=== PATIENT | male | born 1990 | race Caucasian/White ===

== ENCOUNTER 2025-06-12 09:23 | Emergency (ER) | payer BC, SELFPAY ==
[2025-06-12 09:23] VITALS: BP 130/82; PULSE 104; RESP 18; TEMP 36.8; O2SAT 98; BMI 25.1
[2025-06-12 09:26] VITALS: BP 129/76; PULSE 100; RESP 16; TEMP 36.8; O2SAT 98
[2025-06-12] MEDS: Ampicillin/Sulbactam 3 GM in 0.9% Normal Saline (100mL MB+) 100 ML IV (10:03)
[2025-06-12 10:10] LABS: Hematocrit 38.5 % (40-54); Hemoglobin 13.3 g/dL (13.0-16.5); Immature Granulocytes Count 0.050 X10^3/uL (0.0-0.0); Mean Corp Hgb Conc 34.5 g/dL (32-36); Mean Corpuscular Volume 85.9 fL (80-94); Mean Platelet Vol. 9.0 fl (6.2-12.0); NRBC Flagged by Analyzer 0 % (0-5); Platelet Count 452 K/mm3 (150-450); RBC Distribution Width CV 12.2 % (11.6-14.6); RBC Distribution Width SD 38.5 fl (35.1-43.9); Red Blood Count 4.48 M/mm3 (4.6-6.2); White Blood Count 8.8 K/mm3 (4.4-11.0)
--- NOTE | 2025-06-12 10:10 | EDS_ITS ---
HPI History of Present Illness Chief Complaint: Bite Detail of Chief Complaint: Insect bite that is getting worse Informant: patient Onset/Context/Timing Onset: Weeks (Approximately 1 week) Context: Sudden Onset Timing: Continuous Quality: Wound medial distal leg with erythema Location: Left leg Current Severity: Moderate Maximum Severity: Moderate Worsened by: Per patient unknown Relieved by: Not improving and spite of prescription for trimethoprim/sulfame thoxazole. Associated Symptoms Associated Symptoms: No constitutional symptoms Narrative Narrative: Patient apparently was bit 1.5 weeks ago. He was seen last June 05 at urgent care and prescribed trimethoprim/sulfamethoxazole DS. He is taking 1 tablet twice a day. He denies fever, chills night sweats. He wears boots at work. He states at work he has increased swelling and there is irritation from his boots. He denies any purulent or bloody drainage. He is on no immuno suppressive meds. He has no antibiotic allergies. Prior similar symptoms: Yes Recent Illness/Hospitalization: Yes PFSH PFSH Medical History no medical history no medical history Home Medications ?Medication ?Instructions ?Recorded ?Last Taken ?Type clindamycin HCl 300 mg capsule 300 mg PO Q6H #28 CAPSU LES 06/12/25 Unknown Rx (Cleocin HCl) fluconazole 200 mg tablet 400 mg PO QWEEK 06/12/25 Unk nown History sulfamethoxazole 800 1 tab PO BID 06/12/25 Unknow n History mg-trimethoprim 160 mg tablet Allergy/AdvReac Type Severity Reaction Status Date / Time No Known Allergies Allergy Verified 06/12/25 09:26 Social History Smoking Status: Never smoker ROS ROS ED Constitutional Constitutional ED: Denies chills, fever(s), subjective, sweats or weight loss Eyes Eyes: Denies blurry vision or change in vision Respiratory/Chest Respiratory/Chest: Denies cough, dyspnea or dyspnea on exertion Gastrointestinal Gastrointestinal: Denies abdominal pain, nausea or vomiting Musculoskeletal Musculoskeletal: Denies arthralgias or myalgias Integumentary Reports rash Neurologic Neurologic: Denies weakness Hematologic/Lymphatic Hematologic/Lymphatic: Reports systems reviewed and no addt'l complaints, except as documented EXAM Physical Exam Const Vital Signs: 06/12/25 09:23 06/12/25 09:26 06/12/25 10:57 Temperature 98.3 F 98.3 F 99 F Temperature Source Oral Oral Pulse Rate 104 H 100 80 Respiratory Rate 18 16 16 Blood Pressure 130/82 H 129/76 H 122/64 H Blood Pressure Mean 98 93 83 Pulse Ox 98 98 98 Oxygen Delivery Method Room Air Room Air Patient appears no distress. His vital signs are remarkable for tachycardia and elevated blood pressure. He is not febrile. Positive well nourished and well developed General Appearance ED: well developed and NAD HEENT Reports moist mucous membranes HEENT Narrative: Head is atraumatic and normocephalic. Eyes PERRL and EOMs intact bilaterally General Eye ED: Negative for pale conjunctiva or scleral icterus Neck no lymphadenopathy and no JVD Resp normal respiratory effort Cardio regular rate and regular rhythm Extremity Negative for normal to inspection Extremity Narrative: There is swelling of the distal left leg. There is a darkish erythema noted with a information assurance officer erythema more peripherally. There is a wound noted in the center of this area. It is circumferential distal leg. There may be a lymphangitic spread. There is no popliteal or inguinal lymphadenopathy. There is no fluctuance. There is no neurovasc compromise of the left foot. Neuro oriented x3 and CN's II-XII intact bilaterally Sensorium / Orientation: alert Psych mental status grossly normal Skin Skin Narrative: Rash described under the extremity portion. MDM MDM MDM Narrative Medical decision making narrative: Suspect patient has failed outpatient therapy due to the fact that he is on Bactrim DS which has poor streptococcal coverage. It has good MSSA and MRSA coverage. Will obtain white count. If he does not have a significant white count or shift we will change his antibiotics to clindamycin which will have better streptococcal coverage and anaerobes. Lab Data Attestation: I reviewed the patient's lab results. Lab results narrative: CBC is unremarkable. White count and differential normal. Basic metabolic panel is elevated glucose of 146. Patient is not diabetic. This will need to be reassessed by his doctor. His antibiotic was changed from trimethoprim/sulfamethoxazole to clindamycin since he probably has streptococcal infection and not staph. There is a 50% resistance to staphylococcal infections with trimethoprim/sulfamethoxazole. Labs: Laboratory Results - last 24 hr 06/12/25 09:45 WBC 8.8 RBC 4.48 L Hgb 13.3 Hct 38.5 L MCV 85.9 MCH 29.7 MCHC 34.5 RDW Std Deviation 38.5 RDW Coeff of [place] 12.2 Plt Count 452 H MPV 9.0 Immature Gran % (Auto) 0.600 Neut % (Auto) 64.3 Lymph % (Auto) 21.2 [place] % (Auto) 10.3 H Eos % (Auto) 2.8 Baso % (Auto) 0.8 Absolute Neuts (auto) 5.7 Absolute Lymphs (auto) 1.87 Nucleated RBC % 0 Sodium 138 Potassium 3.9 Chloride 103 Carbon Dioxide 22.3 Anion Gap 13 BUN 15 Creatinine 1.15 Estim Creat Clear Calc 104.24 Est GFR (MDRD) Non-Af 85 BUN/Creatinine Ratio 13.0 Glucose 146 H Lactic Acid 1.3 Calcium 9.3 Discharge Plan Triage Chief Complaint: Bite ED Provider: Levar Brandt Dx/Rx/DC Orders Clinical Impression: Cellulitis of left leg without foot, Failure of outpatient treatment, Nondiabetic hyperglycemia Instructions: ED Cellulitis Prescriptions: New clindamycin HCl [Cleocin HCl] 300 mg capsule 300 mg PO Q6H Qty: 28 0RF No Action fluconazole 200 mg tablet 400 mg PO QWEEK sulfamethoxazole-trimethoprim 800-160 mg tablet 1 tab PO BID Primary Care Provider: Josias Spangler Referrals: Josias Spangler MD [Primary Care Provider] - 3-5 Days if not improving Activity Restrictions/Additional Instructions: 1. Stop the trimethoprim/sulfamethoxazole. 2. Start the clindamycin Print Language: Haitian Disposition Disposition: Home, Self Care
[2025-06-12] MEDS: 0.9% Normal Saline (250mL Bag) 250 ML 15 ML IV (10:56)
[2025-06-12 10:57] VITALS: BP 122/64; PULSE 80; RESP 16; TEMP 37.2; O2SAT 98
[2025-06-12 11:07] LABS: Anion Gap 13 (5-15); BUN 15 mg/dL (4-19); BUN/Creat Ratio 13.0 RATIO (10-20); Calcium,Total 9.3 mg/dL (7.6-11.0); Carbon Dioxide 22.3 mmol/L (21.0-32.0); Chloride 103 mmol/L (98-108); Estimated Creatinine Clearance 104.24 ml/min (50-250); Glucose 146 mg/dL (70-99); Potassium 3.9 mmol/L (3.3-5.1)
[2025-06-12 11:23] VITALS: BP 124/75; PULSE 82; RESP 16; TEMP 36.8; O2SAT 99
[2025-06-12 12:29] VITALS: BP 124/75; PULSE 83; RESP 18; TEMP 36.8; O2SAT 99
== END 2025-06-12 12:30 | disposition home or self-care (01) ==
PROVIDERS: Emergency Provider Emergency Medicine; PCP Family Medicine; Visit Provider Emergency Medicine
DX: L03.116 Cellulitis of left lower limb (principal); R73.9 Hyperglycemia, unspecified
CPT/HCPCS: 80048; 83605; 85025; 96365; 99282; A4216; J0295